=== PATIENT | female | born 1970 | race Caucasian/White ===

== ENCOUNTER 2017-08-25 15:04 | Emergency (ER) | payer BC ==
[2017-08-25 15:04] VITALS: BMI 30.2
[2017-08-25] MEDS ORDERED: Sodium Chloride 0.9% 1,000 ML IV STA (15:40)
[2017-08-25] MEDS ORDERED: Sodium Chloride 0.9% 1,000 ML ONE (15:50)
--- NOTE | 2017-08-25 15:51 | C.PDOC ---
History Of Present Illness Patient is a 46 y/o female, with a Hx of cholecystectomy, who presents to the ED with daughter complaining of abdominal pain associated with vomiting and loose stools since last night. Per zane, patient also notes mild headache and urinary discomfort. Daughter reports vomit is non-bloody and non-bilious, mostly containing food. Admits to insulin allergy; denies other medical issues at this time. Time Seen by Provider: 08/25/17 15:32 Chief Complaint (Nursing): Abdominal Pain History Per: Patient History/Exam Limitations: no limitations Onset/Duration Of Symptoms: Hrs (last night) Current Symptoms Are (Timing): Still Present Location Of Pain/Discomfort: Diffuse Associated Symptoms: Vomiting, Diarrhea Recent travel outside of the [place]: No Past Medical History Reviewed: Historical Data, Nursing Documentation, Vital Signs Vital Signs: Last Vital Signs Temp 98.9 F 08/25/17 15:18 Pulse 91 H 08/25/17 15:18 Resp 20 08/25/17 15:18 BP 132/74 08/25/17 15:18 Pulse Ox 96 08/25/17 15:56 - Medical History PMH: No Chronic Diseases Surgical History: Appendectomy, Cholecystectomy - [facility] Procedures ENDOSC POLYPECTOMY OF LG INTEST (04/14/14) Family History: States: No Known Family Hx - Social History Hx Tobacco Use: Yes Hx Alcohol Use: No Hx Substance Use: No - Immunization History Hx Tetanus Toxoid Vaccination: No Hx Influenza Vaccination: No Hx Pneumococcal Vaccination: No Review Of Systems Except As Marked, All Systems Reviewed And Found Negative. Constitutional: Negative for: Fever, Chills Cardiovascular: Negative for: Chest Pain Gastrointestinal: Positive for: Vomiting, Abdominal Pain, Diarrhea Physical Exam - Physical Exam Additional Physical Exam Comments: Constitutional: No acute distress. Head: Normocephalic. Atraumatic. Eyes: PERRL. ENT: Moist mucous membranes. Neck: Supple. Cardiovascular: Regular rate. Radial pulse 2+ bilaterally. Chest: No tenderness. Respiratory: Clear to auscultation bilaterally. GI: Soft. Diffuse abdominal tenderness, mostly to epigastrum. No rebound or guarding. Nondistended. Back: No CVA tenderness. Musculoskeletal: No tenderness or swelling of extremities. Skin: No rash. Neurologic: Alert, no focal deficit. ED Course And Treatment - Laboratory Results Result Diagrams: 08/25/17 16:03 08/25/17 16:03 O2 Sat by Pulse Oximetry: 96 Progress Note: CT abdomen/pelvis, blood work, CBC, urine culture, HCG urine, and UA ordered. Pepcid, zofran, and IV fluids administered. Disposition - Disposition Disposition: HOME/ ROUTINE Disposition Time: 18:09 Condition: STABLE Prescriptions: Ciprofloxacin [Cipro] 500 mg PO BID #14 tab Metronidazole [Flagyl] 500 mg PO Q8 #30 tab Ondansetron ODT [Zofran ODT] 4 mg PO Q8 #12 odt Instructions: Viral Gastroenteritis Forms: [employer] (Irish) - Clinical Impression Clinical Impression: Vomiting, Diarrhea, Enteritis - Scribe Statement The provider has reviewed the documentation as recorded by the Scribe Sienna Morel All medical record entries made by the Scribe were at my direction and personally dictated by me. I have reviewed the chart and agree that the record accurately reflects my personal performance of the history, physical exam, medical decision making, and the department course for this patient. I have also personally directed, reviewed, and agree with the discharge instructions and disposition.
[2017-08-25 16:12] LABS: HCG,QUALITATIVE URINE NEGATIVE (NEGATIVE)
[2017-08-25 16:14] LABS: BASO % 0.4 % (0.0-2.0); EOS % 0.4 % (0.0-4.0); HEMOGLOBIN 14.3 g/dL (11.0-16.0); LYMPH # 1.6 K/uL (1.0-4.3); LYMPH % 15.9 % (20.0-40.0); MEAN CELL VOLUME 87.1 fL (81.0-99.0); MEAN CORPUSCULAR HEMOGLOBIN 28.6 pg (27.0-31.0); MEAN CORPUSCULAR HGB CONC 32.8 g/dL (33.0-37.0); MEAN PLATELET VOLUME 10.5 fL (7.2-11.7); MONO # 0.8 K/uL (0.0-0.8); MONO % 7.8 % (0.0-10.0); NEUT # 7.5 K/uL (1.8-7.0); NEUT % 75.5 % (50.0-75.0); NRBC % 0.1 % (0.0-2.0); RBC 5.02 Mil/uL (3.80-5.20); RED CELL DISTRIBUTION WIDTH 13.9 % (11.5-14.5); WHITE BLOOD COUNT 9.9 K/uL (4.8-10.8)
[2017-08-25 16:15] LABS: SQUAMOUS EPITHIAL 23 /hpf (0-5); URINE BACTERIA RARE (<OCC); URINE BILIRUBIN NEGATIVE (NEGATIVE); URINE BLOOD 1+ (NEGATIVE); URINE CLARITY Hazy (Clear); URINE COLOR Yellow (YELLOW); URINE GLUCOSE (UA) NORMAL (Normal); URINE LEUKOCYTE ESTERASE NEG Leu/uL (Negative); URINE PROTEIN 1+ mg/dL (NEGATIVE)
[2017-08-25 16:19] LABS: ALB/GLOB RATIO 1.3 (1.0-2.1); ALBUMIN 4.3 g/dL (3.5-5.0); ALT/SGPT 49 U/L (9-52); AST/SGOT 38 U/L (14-36); BLOOD UREA NITROGEN 9 mg/dL (7-17); CALCIUM 8.7 mg/dl (8.6-10.4); GFR AFRICAN-AMERICAN > 60; GFR NON-AFRICAN AMERICAN > 60; LIPASE 38 U/L (23-300)
--- NOTE | 2017-08-25 17:51 | CT ---
PROCEDURE: CT Abdomen and Pelvis with contrast HISTORY: Abdominal pain and vomiting Negative test (concurrent with this examination). Relevant surgical history: Cholecystectomy and appendectomy. COMPARISON: None. TECHNIQUE: Contrast dose: 100 cc Visipaque 320 Radiation dose: Total exam DLP = 592.04 mGy-cm. This CT exam was performed using one or more of the following dose reduction techniques: Automated exposure control, adjustment of the mA and/or kV according to patient size, and/or use of iterative reconstruction technique. FINDINGS: LOWER THORAX: Unremarkable. LIVER: Unremarkable. No gross lesion or ductal dilatation. GALLBLADDER AND BILE DUCTS: Status post cholecystectomy. No abnormality is seen in the gallbladder fossa. PANCREAS: Unremarkable. No gross lesion or ductal dilatation. SPLEEN: Unremarkable. ADRENALS: Unremarkable. No mass. KIDNEYS AND URETERS: Unremarkable. No hydronephrosis. No solid mass. VASCULATURE: Unremarkable. No aortic aneurysm. BOWEL: Diverticulosis without an acute inflammatory component or other associated pathologic process. Mildly dilated proximal small bowel and fluid filled distal small bowel loops likely a component of enteritis without mechanical obstruction APPENDIX: Prior appendectomy. PERITONEUM: Unremarkable. No free fluid. No free air. LYMPH NODES: Unremarkable. No enlarged lymph nodes. BLADDER: Unremarkable. REPRODUCTIVE: Enlarged, myomatous uterus. BONES: No acute fracture. OTHER FINDINGS: None. IMPRESSION: Findings consistent with enteritis without evidence of mechanical obstruction. Additional benign and/or incidental findings described above.
[2017-08-25 18:33] VITALS: BP 126/76; PULSE 84; RESP 18; TEMP 98.4; O2SAT 100
== END 2017-08-25 18:34 | disposition home or self-care (01) ==
LOC: C.ER 15:04
DX: K52.9 Noninfective gastroenteritis and colitis, unspecified (principal); R11.10 Vomiting, unspecified
CPT/HCPCS: 74177; 80053; 81001; 83690; 84703; 85025; 87086; 96374; 96375; 99285; J2405; J7030